=== PATIENT | female | born 1955 | race African-American/Black ===

== ENCOUNTER 2018-02-04 15:28 | Outpatient (CLI) | payer OTHER ==
[2018-02-04 17:03] LABS: #Basophils 0.2 thou/uL (0.0-0.2); #Eosinphils 0.1 thou/uL (0.0-0.7); #Lymphocytes 4.3 thou/uL (1.20-3.40); #Monocytes 0.8 thou/uL (0.11-0.59); #Neutrophils 5.3 thou/uL (1.40-6.50); %Basophils 1.4 % (0.0-1.0); %Eosinophils 1.3 % (0.0-10.0); %Lymphocytes 40.1 % (21.0-51.0); %Monocytes 7.4 % (0.0-10.0); %Neutrophils 49.8 % (42.0-75.0); Hemoglobin 14.6 g/dL (12.0-16.0); Mean Corpuscular HGB CONC 31.5 g/dL (32.0-36.0); Mean Platelet Volume 7.4 fL (7.4-10.4); Platelet Count 340 thou/uL (130-400); RBC Distribution Width 12.9 % (11.5-14.5); Red Blood Cell (RBC) Count 5.04 mill/uL (4.20-5.40); White Blood Cell (WBC) Count 10.7 thou/uL (4.8-10.8)
[2018-02-04 17:30] LABS: ALT (SGPT) 12 U/L (8-55); AST (SGOT) 13 U/L (5-34); Albumin 4.6 g/dL (3.4-4.8); Alkaline Phosphatase 106 U/L (40-150); Anion Gap 11 mmol/L (10-20); BUN (Urea Nitrogen) 18 mg/dL (9.8-20.1); Bilirubin, Total 0.5 mg/dL (0.2-1.2); Calc. Creatinine Clearance 0 mL/min (70-130); Calcium 10.1 mg/dL (7.8-10.44); Carbon Dioxide 30 mmol/L (23-31); Chloride 105 mmol/L (98-107); Estimated GFR-MDRD 90; Globulin 3.3 g/dL (2.4-3.5); Glucose 80 mg/dL (80-115); Potassium 3.7 mmol/L (3.5-5.1); Protein, Total 7.9 g/dL (6.0-8.3); Sodium 142 mmol/L (136-145)
== END 2018-02-04 15:29 | disposition home or self-care (01) ==
LOC: LABBT 15:28
PROVIDERS: ATTEND Internal Medicine Cardiovascular Disease
DX: Z01.810 Encounter for preprocedural cardiovascular examination (principal)
CPT/HCPCS: 80053; 85025

== ENCOUNTER 2018-02-11 06:19 | Day surgery (SDC) | payer OTHER ==
[2018-02-04 15:48] VITALS: BMI 45.8
[2018-02-11] MEDS ORDERED: Lidocaine 1% (PF) 30 ML VIAL ONE (06:42)
[2018-02-11] MEDS ORDERED: Fentanyl 100 MCG/2 ML VIAL ONE (07:45)
[2018-02-11] MEDS ORDERED: Midazolam HCl 2 mg/2 ml Vial ONE (07:45)
[2018-02-11] MEDS ORDERED: Iopamidol 370 76% 100 ML VIAL ONE (13:52)
== END 2018-02-11 14:45 | disposition home or self-care (01) ==
LOC: CCL 06:19
PROVIDERS: ATTEND Internal Medicine Cardiovascular Disease
PROC: 4A023N7 Measurement of Cardiac Sampling and Pressure, Left Heart, Percutaneous Approach (ICD-10-PCS; principal; 2018-02-11)
PROC: B2111ZZ Fluoroscopy of Multiple Coronary Arteries using Low Osmolar Contrast (ICD-10-PCS; principal; 2018-02-11)
DX: I25.10 Atherosclerotic heart disease of native coronary artery without angina pectoris (principal); I35.1 Nonrheumatic aortic (valve) insufficiency; F17.210 Nicotine dependence, cigarettes, uncomplicated; E78.5 Hyperlipidemia, unspecified; I10 Essential (primary) hypertension; E78.00 Pure hypercholesterolemia, unspecified; Z79.51 Long term (current) use of inhaled steroids; Z79.899 Other long term (current) drug therapy
CPT/HCPCS: 76942; 93458; 93567; 99152; C1769; J1644; J2001; J2250; J3010

== ENCOUNTER 2018-04-28 06:30 | Outpatient (CLI) | payer OTHER ==
[2018-04-28 12:36] LABS: Hemoglobin 13.5 g/dL (12.0-16.0); Mean Corpuscular HGB CONC 31.6 g/dL (32.0-36.0); Mean Corpuscular Hemoglobin 28.7 pg (27.0-31.0); Mean Corpuscular Volume 90.8 fL (78.0-98.0); Mean Platelet Volume 7.1 fL (7.4-10.4); Platelet Count 325 thou/uL (130-400); RBC Distribution Width 12.7 % (11.5-14.5); Red Blood Cell (RBC) Count 4.72 mill/uL (4.20-5.40)
[2018-04-28 13:02] LABS: ALT (SGPT) 11 U/L (8-55); AST (SGOT) 14 U/L (5-34); Albumin 4.3 g/dL (3.4-4.8); Alkaline Phosphatase 105 U/L (40-150); Anion Gap 14 mmol/L (10-20); BUN (Urea Nitrogen) 14 mg/dL (9.8-20.1); Bilirubin, Total 0.3 mg/dL (0.2-1.2); Calc. Creatinine Clearance 0 mL/min (70-130); Calcium 9.6 mg/dL (7.8-10.44); Carbon Dioxide 24 mmol/L (23-31); Chloride 107 mmol/L (98-107); Estimated GFR-MDRD Greater than 90; Globulin 3.2 g/dL (2.4-3.5); Glucose 111 mg/dL (80-115); Protein, Total 7.5 g/dL (6.0-8.3); Sodium 141 mmol/L (136-145)
== END 2018-04-28 06:31 | disposition home or self-care (01) ==
LOC: LABBT 06:30
PROVIDERS: ATTEND Internal Medicine Cardiovascular Disease
DX: Z01.812 Encounter for preprocedural laboratory examination (principal); I25.10 Atherosclerotic heart disease of native coronary artery without angina pectoris
CPT/HCPCS: 80053; 85027

== ENCOUNTER 2018-05-03 06:37 | Day surgery (SDC) | payer OTHER ==
[2018-04-28 12:03] VITALS: BMI 46.7
[2018-05-03] MEDS ORDERED: Diazepam 5 MG TAB ONE (07:27)
[2018-05-03 07:37] LABS: Prothrombin Time 13.1 SEC (12.0-14.7)
[2018-05-03 07:50] LABS: Cardiac Risk 4.4 (Less than 4.5)
[2018-05-03] MEDS ORDERED: Heparin 10,000 UNITS/1 ML VIAL ONE (07:50)
[2018-05-03] MEDS ORDERED: Verapamil 5 MG/2 ML VIAL ONE ×2 (07:50→08:16)
[2018-05-03] MEDS ORDERED: Nitroglycerin 100MG/250ML BOT 250 ML ONE (07:50)
[2018-05-03] MEDS ORDERED: Adenosine 6 MG/2 ML VIAL ONE (08:12)
[2018-05-03] MEDS ORDERED: Aspirin Chewable 81 MG TAB ONE (08:16)
[2018-05-03] MEDS ORDERED: Clopidogrel Bisulfate 300 MG TAB ONE (08:16)
[2018-05-03] MEDS ORDERED: Fentanyl 100 MCG/2 ML VIAL ONE (08:29)
[2018-05-03] MEDS ORDERED: Midazolam HCl 2 mg/2 ml Vial ONE (08:29)
--- NOTE | 2018-05-03 09:45 | OP ---
DATE OF PROCEDURE: 05/03/2018 PREPROCEDURE DIAGNOSES: Continued shortness of breath and moderate AI. POSTPROCEDURE DIAGNOSIS: Successful stent placement to the circumflex artery. COMPLICATIONS: None. ESTIMATED BLOOD LOSS: mL. Please see [facility] note for details. DESCRIPTION OF PROCEDURE: Ms. Nichols underwent successful primary stent placement to the circumflex artery. Initially, a Voda 3.5 guide was used. After stent placement, the Voda was not engaged. After multiple manipulations, there was loss of wire and guide. A JL3.5 guide then fit well into the left main. Next, post images suggested excellent angiographic result with less than 20% stenosis distally. It was decided not to proceed with further stent implantation. The patient was transferred to the outpatient area in stable condition. Job ID: [id number]
[2018-05-03] MEDS ORDERED: Iopamidol 370 76% 100 ML VIAL ONE (12:08)
[2018-05-03] MEDS ORDERED: Iopamidol 370 76% 50 ML VIAL FS ONE (12:08)
--- NOTE | 2018-05-03 14:11 | EKG ---
Test Reason : PREOP Blood Pressure : / mmHG Vent. Rate : 061 BPM Atrial Rate : 061 BPM P-R Int : 174 ms QRS Dur : 102 ms QT Int : 398 ms P-R-T Axes : 057 -76 033 degrees QTc Int : 400 ms Normal sinus rhythm Left axis deviation Nonspecific T wave abnormality Abnormal ECG No previous ECGs available Confirmed by DR. Payton BLACK ([id number]) on 05/03/2018 2:11:08 PM Referred By: MANDA Confirmed By:DR. Payton BLACK
== END 2018-05-03 14:00 | disposition home or self-care (01) ==
LOC: CCL 06:37
PROVIDERS: ATTEND Internal Medicine Cardiovascular Disease
DX: I35.1 Nonrheumatic aortic (valve) insufficiency (principal); I25.118 Atherosclerotic heart disease of native coronary artery with other forms of angina pectoris; I10 Essential (primary) hypertension; E78.5 Hyperlipidemia, unspecified; F17.210 Nicotine dependence, cigarettes, uncomplicated; Z98.51 Tubal ligation status; Z90.49 Acquired absence of other specified parts of digestive tract; Z90.89 Acquired absence of other organs; Z98.890 Other specified postprocedural states; Z79.899 Other long term (current) drug therapy; Z53.8 Procedure and treatment not carried out for other reasons
CPT/HCPCS: 36415; 80061; 85347; 85610; 85730; 92928; 93005; 93010; 93454; 99152; C1769; C1887; C9600; J0153; J1644; J2250; J3010; Q9967

== ENCOUNTER 2019-03-28 10:19 | Outpatient (CLI) | payer OTHER ==
--- NOTE | 2019-03-28 11:17 | CT ---
EXAM: CT chest without contrast per low-dose cancer screening protocol HISTORY: History of smoking and nicotine dependence COMPARISON: None TECHNIQUE: Multiple contiguous axial images were obtained in a CT of the chest without contrast per l ow-dose cancer screening protocol. Sagittal and coronal reformats were performed. FINDINGS: Pulmonary nodules: No suspicious pulmonary nodules are seen. No focal infiltrates are seen. Atelectas is versus scarring is seen in the right middle lobe and lingula. Pleural space: No pneumothorax or pleural effusion are seen. Heart: The heart is normal in size. Calcifications in the coronary arteries. Mediastinum: No hilar or mediastinal lymphadenopathy appreciated on this limited noncontrast examinat ion. There are calcified right hilar lymph nodes. Bones: Degenerative changes in the spine.. Visualized subdiaphragmatic structures: Status post cholecystectomy.. IMPRESSION: Lung RADS category 1-negative.
== END 2019-03-28 10:20 | disposition home or self-care (01) ==
LOC: CT 10:19
PROVIDERS: ATTEND Family Medicine
DX: F17.210 Nicotine dependence, cigarettes, uncomplicated (principal)
CPT/HCPCS: G0297

== ENCOUNTER 2020-09-04 15:04 | Outpatient (CLI) | payer OTHER | END 2020-09-04 15:05 | disposition home or self-care (01) | LOC: BRENFP 15:04 | PROVIDERS: ATTEND Family Medicine | DX: M25.561 Pain in right knee (principal); M25.562 Pain in left knee; M17.0 Bilateral primary osteoarthritis of knee ==